=== PATIENT | female | born 2005 | race Two or more races ===

== ENCOUNTER 2024-10-23 09:05 | Emergency (ER) | payer OTHER ==
[~2024-10-23] VITALS: Ht 154.9 cm; Wt 98.3 kg
--- NOTE | 2024-10-23 10:24 | ED.PDOC ---
Eye-HPI HPI Comments This is a 19 year old female presents to the ED with chief complaint of sore throat. Patient reports that she has been experiencing a sore throat with associated nasal congestion for the past 3 days and eye redness since yesterday. Patient denies any N/V, SOB, fever, chills, chest pain, dizziness, headache, or ear pain Chief Complaint: Flu like Time Seen by MD: 10:22 Reviewed Notes: Nurses Notes, Medications, Allergies Allergies: Coded Allergies: NO KNOWN ALLERGIES (Unverified , 10/23/24) Information Source: Patient Mode of Arrival: Ambulatory Timing: Days Duration: Since onset Prehospital treatment: None Quality: Pain, Red Eye Location: Bilateral Mouth Location: Pharynx Associated signs and symptoms: Sore Throat Past Medical History PAST MEDICAL HISTORY: Asthma Surgical History: Denies all surgeries METEOROLOGICAL OBSERVER History: No Pertinent METEOROLOGICAL OBSERVER History Family History Family History: Reviewed,noncontributory to illness Social History Smoker: Non-Smoker Alcohol: Denies ETOH Use Drugs: Denies Drug Use Lives In: Home Constitutional: denies: chills, diaphoresis, fatigue, fever, malaise, sweats, weakness, others EENTM: reports: eye redness, nose congestion, throat pain; denies: blurred vision, double vision, ear bleeding, ear discharge, ear drainage, ear pain, ear ringing, eye pain, hearing loss, mouth pain, mouth swelling, nasal discharge, nose bleeding, nose pain, photophobia, tearing, throat swelling, voice changes, others Respiratory: denies: cough, hemoptysis, orthopnea, SOB at rest, shortness of breath, SOB with excertion, stridor, wheezing, others Cardiovascular: denies: chest pain, dizzy spells, diaphoresis, Dyspnea on exertion, edema, irregular heart beat, left arm pain, lightheadedness, palpitations, PND, syncope, others Gastrointestinal: denies: abdomen distended, abdominal pain, blood streaked bowels, constipated, diarrhea, dysphagia, difficulty swallowing, hematemesis, melena, nausea, poor appetite, poor fluid intake, rectal bleeding, rectal pain, vomiting, others Genitourinary: denies: abnormal vagina bleeding, burning, dyspareunia, dysuria, flank pain, frequency, hematuria, incontinence, pain, , vagina discharge, urgency, others Neurological: denies: dizziness, fainting, headache, left sided numbness, left sided weakness, numbness, paresthesia, pre-existing deficit, right sided numbness, right sided weakness, seizure, speech problems, tingling, tremors, weakness, others Musculoskeletal: denies: back pain, gout, joint pain, joint swelling, muscle pain, muscle stiffness, neck pain, others Integumetry: denies: bruises, change in color, change in hair/nails, dryness, laceration, lesions, lumps, rash, wounds, others Allergic/Immunocompromised: denies: Difficulty Healing, Frequent Infections, H michael, Itching, others Hematologic/Lymphatic: denies: anemia, blood clots, easy bleeding, easy bruising, swollen glands, others Endocrine: denies: excessive hunger, excessive sweating, excessive thirst, excessive urination, flushing, intolerance to cold, intolerance to heat, unexplained weight gain, unexplained weight loss, others Psychiatric: denies: anxiety, bipolar disorder, depression, hopeless, panic disorder, schizophrenia, sleepless, suicidal, others All Other Systems: Reviewed and Negative Physical Exam General Appearance: No Apparent Distress, Normal HEENT: Normal ENT Inspection, PERRL/EOMI, Other (Bilateral TMS retracted. Post nasal drip.) Neck: Full Range of Motion, Non-Tender, Normal, Normal Inspection Respiratory: Chest Non-Tender, Lungs Clear, No Accessory Muscle Use, No Respiratory Distress, Normal Breath Sounds Cardiovascular: No Edema, No JVD, No Murmur, No Gallop, Normal Peripheral Pulses, Regular Rate/Rhythm Breast Exam: Deferred Gastrointestinal: No Organomegaly, Non Tender, No Pulsatile Mass, Normal Bowel Sounds, Soft Genitalia: Deferred Pelvic: Deferred Rectal: Deferred Extremities: No calf tenderness, Normal capillary refill, Normal inspection, Normal range of motion, Non-tender, No pedal edema Musculoskeletal : Apperance: Normal Neurologic: Alert, earthmoving labourer II-XII nml as Tested, No Motor Deficits, Normal Affect, Normal Mood, No Sensory Deficits Cerebellar Function: Normal Reflexes: Normal Skin: Dry, Normal Color, Warm Lymphatic: No Adenopathy Was a procedure done? Was a procedure done?: No EENT DIFF Eye: Conjunctivitis, Allergic, Bacterial, Chlamydial, Viral Ear: Otitis Externa, Otitis Media, Pharyngitis, Sinusitis Sore Throat: Epiglottitis, Hand Foot Mouth Disease, Herpangina, Mononeucleosis, Kamar's Angina, Peritonsillar Cellulitis, Pharyngitis, Streptococcal, Viral Pharyngitis X-Ray, Labs, Meds, VS Vital Signs Date Time Temp Pulse Resp B/P (MAP) Pulse Ox O2 Delivery O2 Flow Rate FiO2 10/23/24 09:29 97.6 84 20 121/90 (100) 97 97.6 Time of 1ST Reevaluation: 10:25 Reevaluation 1ST: Unchanged Patient Education/Counseling: Diagnosis, Treatment Family Education/Counseling: No Family Present Additional Information Previous visits reviewed: None The following tests were ordered, and results were reviewed by me: None Additional Information was gathered from interviewing the following independent historians: None I reviewed and agreed with the following test results read by other providers: None I discussed treatment and results with medical personnel and: patient Comprehensive systems review obtained and negative except for what is stated in the HPI. SEPSIS Sepsis Screen Date sepsis recognized/suspect: Oct 23, 2024 Time Sepsis recognized/suspect: 929 Recent Procedure: No On Antibiotic Therapy: No Respiratory Rate >20: No Heart Rate >90: No Temp<36 C (96.8 F) or >38.3 C: No SBP <90 or MAP <65 mmHG: No New Acute Mental Status Change: No Is the patient on CPAP, BIPAP,: No Vital Signs Date Time Temp Pulse Resp B/P (MAP) Pulse Ox O2 Delivery O2 Flow Rate FiO2 10/23/24 09:29 97.6 84 20 121/90 (100) 97 97.6 Departure 1 Departure Time of Disposition: 10:26 Impression: Primary Impression: Eustachian tube disorder Qualified Codes: H69.93 - Unspecified eustachian tube disorder, bilateral Additional Impression: URI (upper respiratory infection) Qualified Codes: J06.9 - Acute upper respiratory infection, unspecified Disposition: HOME / SELF CARE / HOMELESS Condition: Good e-Prescriptions Fluticasone Propionate (Nasal) (Flonase Allergy Relief Ch) 50 Mcg/Act Spr 50 MCG NA BID, #1 SPRAY Prov: HAMIDA QURESHI MD 10/23/24 Loratadine & Pseudoephedrine (Claritin-D 24 Hour 10-240 mg) 1 Tab Tab 1 TAB PO DAILY@BREAKFAST PRN for 5 Days, #5 TAB Prov: HAMIDA QURESHI MD 10/23/24 Discharged With: Self Critical Care Note Critical Care Time?: No Stability Stability form required: No Heart Score Heart Score: Heart Score Response (Comments) Value History N/A 0 EKG N/A 0 Age N/A 0 Risk Factors N/A 0 Troponin N/A 0 Total 0 I personally scribed for HAMIDA QURESHI MD ([email or web address]) on 10/23/24 at 10:24. Electronically submitted by Josh Cunningham ([email or web address]). HAMIDA QURESHI MD Oct 23, 2024 10:24
[2024-10-23] MEDS ORDERED: LORA-1130 PO (10:28)
[2024-10-23] MEDS ORDERED: FLUT1SPR9 (10:28)
[2024-10-23 11:56] VITALS: BP 118/64; PULSE 82; RESP 18; TEMP 97.4; O2SAT 98
== END 2024-10-23 12:00 | disposition home or self-care (01) ==
LOC: ER 09:14
DX: H69.93 Unspecified Eustachian tube disorder, bilateral (principal); J06.9 Acute upper respiratory infection, unspecified; J45.909 Unspecified asthma, uncomplicated

== ENCOUNTER 2025-03-21 21:29 | Emergency (ER) | payer OTHER ==
[~2025-03-21] VITALS: Ht 167.6 cm; Wt 91.0 kg
[~2025-03-21 21:29] MED LIST: FLUT1SPR9; LORA-1130 PO
[2025-03-21 21:40] VITALS: BP 148/84; PULSE 98; TEMP 98
--- NOTE | 2025-03-21 22:01 | ED.PDOC ---
History of Present Illness HPI Comments 19-year-old female, with a history of asthma, is brought in by ambulance from private residence for chief complaint of asthma exacerbation after running out of her inhaler, today. Patient received 2 albuterol 1 Atrovent breathing treatments EN route, with notable improvement. At time of assessment, patient has a SpO2 of 97-100% on room air and reports on only having a cough and runny nose, currently. She comments, usually, using 4-5x doses of inhaler a day. REVIEW OF SYSTEMS: General: No fever, no chills, or fatigue HEENT: No sore throat, no earache, no congestion, no neck pain. Cardiac: No chest pain. No palpitations. Lungs: Shortness of breath, no cough. GI: No nausea, no vomiting, no diarrhea, no constipation, no abdominal pain : No dysuria, frequency, or urgency. No hematuria. Musculoskeletal: No joint pain , no joint swelling, no extremity edema. Skin: No rash, no itching. Neuro: No headache, no dizziness, no weakness (And as sated in HPI) PHYSICAL EXAM: General: Awake, alert and oriented. No acute distress. Skin: Skin in warm, dry and intact. Appropriate color for ethnicity. HEENT: The head is normocephalic and atraumatic. Conjunctivae are clear without exudates or hemorrhage. Sclera is non-icteric. Eyelids are normal in appearance without swelling or lesions. Oral mucosa is pink and moist Neck: The neck is supple with normal range of motion. No JVD. Cardiac: Heart rate and rhythm are normal. No murmurs, gallops, or rubs are auscultated. Respiratory: No signs of respiratory distress. Bilateral wheezes. Abdominal: Abdomen is soft, non-tender without distention, guarding or rigidity. Bowel sounds are present and normoactive in all four quadrants. Extremities: Upper and lower extremities are atraumatic in appearance without deformity or edema. Neurological: The patient is awake, alert and oriented to person, place, and time with normal speech. Speech is clear. There is no facial asymmetry. Psychiatric: Appropriate mood and affect. Good judgement and insight. Chief Complaint: Asthma Time Seen by MD: 21:50 Reviewed Notes: Nurses Notes, Plant Taxonomy Teacher Notes, Medications, Allergies Allergies: Coded Allergies: NO KNOWN ALLERGIES (Unverified , 10/23/24) Home Meds Active Scripts Respiratory Therapy Supplies (Full Kit Nebulizer Set) Set Mis, UNIT XX ONCE, #1 Prov:JESSICA DOCKERY MD 03/22/25 Albuterol Sulfate (Albuterol Sulfate) 0.083 % Neb, 1 VIAL NEB Q4HPRN PRN for 5 Days, #5 VIAL Prov:JESSICA DOCKERY MD 03/22/25 Azithromycin (ZITHROMAX TABLET) 250 Mg Tb, 250 MG PO DAILY for 4 Days, #4 TAB Prov:JESSICA DOCKERY MD 03/22/25 Prednisone (Prednisone) 20 Mg Tab, 20 MG PO DAILY for 4 Days, #4 MG Prov:JESSICA DOCKERY MD 03/22/25 Fluticasone Propionate (Nasal) (Flonase Allergy Relief Ch) 50 Mcg/Act Spr, 50 MCG NA BID, #1 SPRAY Prov:HAMIDA QURESHI MD 10/23/24 Loratadine & Pseudoephedrine (Claritin-D 24 Hour 10-240 mg) 1 Tab Tab, 1 TAB PO DAILY@BREAKFAST PRN for 5 Days, #5 TAB Prov:HAMIDA QURESHI MD 10/23/24 Information Source: Patient, Emergency Med Personnel Mode of Arrival: EMS Severity: Moderate Timing: Hours Duration: Since onset Prehospital treatment: 12 Lead EKG, Breathing Tx, Senior Firmware Engineer Past Medical History PAST MEDICAL HISTORY: Asthma Surgical History: Denies all surgeries ROLL CARRIER History: No Pertinent ROLL CARRIER History Family History Family History: Reviewed,noncontributory to illness Social History Smoker: Non-Smoker Alcohol: Denies ETOH Use Drugs: Denies Drug Use Lives In: Home Was a procedure done? Was a procedure done?: No Differential Dx Considerations may include: Differential diagnoses considered includebut arenot limited to acute Bronchitis, Asthma, COPD, Pneumothorax, PE, CHF, Pulmonary HTN, Anemia, CO Poisoning, Methemoglobinemia, Hyperventilation, Metabolic Acidosis, Pulmonary Edema, Pneumonia, ACS, Pericardial Tamponade, Anxiety, other X-Ray, Labs, Meds, VS Vital Signs Date Time Temp Pulse Resp B/P (MAP) Pulse Ox O2 Delivery O2 Flow Rate FiO2 03/22/25 00:03 21 100 Room Air* 0 03/21/25 22:22 16 100 Room Air* 0 21 03/21/25 21:40 98.0 98 18 148/84 100 98.0 Lab Test 03/22/25 01:15 Range/Units Influenza Type A Antigen Negative Negative Influenza Type B Antigen Negative Negative SARS-CoV-2 Antigen (Rapid) Negative NEGATIVE Current Medications Medications (Trade) Dose Ordered Sig/Tara Route Start Time Stop Time Status Last Admin Albuterol (Ventolin Medneb) 5 mg ONCE ONCE NEB 03/22/25 00:00 03/22/25 00:03 DC 03/22/25 00:03 [place] [id number] Ph: [phone] DIAGNOSTIC IMAGING Diagnostic Imaging Report : [id number] Signed PATIENT: BENEDICT DINH ACCT: [id number] UNIT: [id number] : 2005 LOC: ER ROOM / BED: / AGE / SEX: 19 / F ADM STATUS: REG ER SERVICE 53 ORDERING PHYSICIAN: JESSICA DOCKERY MD PROCEDURE(s): CXR1 - CHEST XRAY 1 VIEW REASON: Shortness of breath, cough, asthma ORDER NUMBER(s): [id number], ACCESSION NUMBER(s): [id number] CHEST RADIOGRAPH Indication: Shortness of breath, cough, asthma Technique: Single frontal view of the chest was obtained. Comparison: None Findings: Mild hazy opacities in the medial right lower lung. No significant pleural effusion. No pneumothorax. Nonenlarged cardiomediastinal silhouette. IMPRESSION: Possible early right lower lung pneumonia. Recommend short-term follow-up radiog raph after symptom improves to ensure resolution of the opacities and exclude underlying mass. ATED BY: DAVE MAR MD DICTATED DATE/TIME: 03/21/252228 SIGNED BY: DAVE MAR MD SIGNED DATE/TIME: 03/21/252228 CC: Time of 1ST Reevaluation: 02:00 Reevaluation 1ST: Improved Patient Education/Counseling: Need For Follow Up Family Education/Counseling: Need For Follow Up SEPSIS Sepsis Screen Date sepsis recognized/suspect: Mar 21, 2025 Time Sepsis recognized/suspect: 2139 Recent Procedure: No On Antibiotic Therapy: No Respiratory Rate >20: No Heart Rate >90: Yes Temp<36 C (96.8 F) or >38.3 C: No SBP <90 or MAP <65 mmHG: No New Acute Mental Status Change: No Is the patient on CPAP, BIPAP,: No Physician Orders Chest Xray 1 View (03/21/25 21:54) Vital Signs Date Time Temp Pulse Resp B/P (MAP) Pulse Ox O2 Delivery O2 Flow Rate FiO2 03/22/25 00:03 21 100 Room Air* 0 21 03/21/25 22:22 16 100 Room Air* 0 21 03/21/25 21:40 98.0 98 18 148/84 100 98.0 Departure 1 Departure Time of Disposition: 02:11 Impression: Primary Impression: Asthma exacerbation Disposition: 02 SHORT TERM HOSPITAL Condition: Stable Additional Instructions: ED DISCHARGE INSTRUCTIONS Instructions: Please read all instructions provided in this packet carefully. Although you have been discharged from the Emergency Department, this does not mean that you have a "clean bill of health". No definitive diagnosis for your symptoms has been made today. It is possible that you are in the process of developing a serious illness. This is why you must return to the ED without fail if any new or worsening symptoms (especially if your symptoms include chest pain, trouble breathing, abdominal pain, fever, headache, confusion, trouble seeing, or trouble walking) It is also very important that you see a primary care provider (PCP) within the next 3-5 days to follow up. If you are unable to get an appointment, return to the ED for re-evaluation. SHORTNESS OF BREATH EDUCATION Shortness of breath has many causes. Sometimes conditions such as anxiety can l ead to shortness of breath. Some people get mild shortness of breath when they exercise. Trouble breathing also can be a symptom of a serious problem, such as asthma, lung disease, emphysema, heart problems, and pneumonia. If your shortness of breath continues, you may need tests and treatment. Watch for any changes in your breathing and other symptoms. Follow-up care is a carson part of your treatment and safety. Be sure to make and go to all appointments, and call your doctor if you are having problems. It's also a good idea to know your test results and keep a list of the medicines you take. How can you care for yourself at home? Do not smoke or allow others to smoke around you. If you need help quitting, talk to your doctor about stop-smoking programs and medicines. These can increase your chances of quitting for good. Get plenty of rest and sleep. Take your medicines exactly as prescribed. Call your doctor if you think you are having a problem with your medicine. Find healthy ways to deal with stress. Exercise daily. Get plenty of sleep. Eat regularly and well. When should you call for help? Call 911 anytime you think you may need emergency care. For example, call if: You have severe shortness of breath. You have symptoms of a heart attack. These may include: Chest pain or pressure, or a strange feeling in the chest. Sweating. Shortness of breath. Nausea or vomiting. Pain, pressure, or a strange feeling in the back, neck, jaw, or upper belly or in one or both shoulders or arms. Lightheadedness or sudden weakness. A fast or irregular heartbeat. After you call 911, the an/ssn 2 4 operator may tell you to chew 1 adult-strength or 2 to 4 low-dose aspirin. Wait for an ambulance. Do not try to drive yourself. Call your doctor now or seek immediate medical care if: Your shortness of breath gets worse or you start to wheeze. Wheezing is a high- pitched sound when you breathe. You wake up at night out of breath or have to prop your head up on several pillows to breathe. You are short of breath after only light activity or while at rest. Watch closely for changes in your health, and be sure to contact your doctor if: You do not get better over the next 1 to 2 days. Credits for Shortness of Breath: Care Instructions Current as of: December 03, 2023 Author: [employer] Staff Test results 03/22/25 01:15 Result Range/Units Influenza Type A Antigen Negative Negative Influenza Type B Antigen Negative Negative SARS-CoV-2 Antigen (Rapid) Negative NEGATIVE PROCEDURE(s): CXR1 - CHEST XRAY 1 VIEW REASON: Shortness of breath, cough, asthma ORDER NUMBER(s): [id number], ACCESSION NUMBER(s): [id number] CHEST RADIOGRAPH Indication: Shortness of breath, cough, asthma Technique: Single frontal view of the chest was obtained. Comparison: None Findings: Mild hazy opacities in the medial right lower lung. No significant pleural effusion. No pneumothorax. Nonenlarged cardiomediastinal silhouette. IMPRESSION: Possible early right lower lung pneumonia. Recommend short-term follow-up radiograph after symptom improves to ensure resolution of the opacities and exclude underlying mass. e-Prescriptions Respiratory Therapy Supplies (Full Kit Nebulizer Set) Set Mis UNIT XX ONCE, #1 Prov: JESSICA DOCKERY MD 03/22/25 Albuterol Sulfate (Albuterol Sulfate) 0.083 % Neb 1 VIAL NEB Q4HPRN PRN for 5 Days, #5 VIAL Prov: JESSICA DOCKERY MD 03/22/25 Azithromycin (ZITHROMAX TABLET) 250 Mg Tb 250 MG PO DAILY for 4 Days, #4 TAB Prov: JESSICA DOCKERY MD 03/22/25 Prednisone (Prednisone) 20 Mg Tab 20 MG PO DAILY for 4 Days, #4 MG Prov: JESSICA DOCKERY MD 03/22/25 Comments MDM: Patient improved with treatment in the emergency department. She is felt stable for discharge home. Patient well-appearing, nontoxic. Advised prompt follow-up with PCP, return to the ED with any new, worsening or concerning symptoms. Extensive evaluation was performed in attempt to identify or rule out: (See differential diagnosis section) The following tests were ordered, and results were reviewed by me and discussed with patient: (See diagnostic results section) The following test were independently interpreted by me: Rapid influenza a and B test, COVID-19 antigen Ca test I reviewed and agreed with the following test results read by other providers: Chest x-ray I reviewed the following notes from the pt's past medical encounters: N/A Additional information was gathered from interviewing the following independent historians: EMS personnel Decision regarding hospitalization or escalation of hospital level of care: Risks and benefits of admission for further treatment of patient's condition was considered however due to patient's stable condition patient will be discharged to follow up closely or return to care for worsening of condition or inability to follow up. Critical Care Note Critical Care Time?: No Stability Stability form required: No Heart Score Heart Score: Heart Score Response (Comments) Value History N/A 0 EKG N/A 0 Age N/A 0 Risk Factors N/A 0 Troponin N/A 0 Total 0 I personally scribed for JESSICA DOCKERY MD ([email or web address]) on 03/21/25 at 22:01. Electronically submitted by Josh Cunningham ([email or web address]). I personally scribed for JESSICA DOCKERY MD ([email or web address]) on 03/21/25 at 23:00. Electronically submitted by Josh Cunningham ([email or web address]). JESSICA DOCKERY MD Mar 21, 2025 22:01
[2025-03-21] MEDS: ALBUTEROL SULF 2.5 MG/0.5ML(0.5%) NEB SOLN NEB ONE (22:19)
[2025-03-21] MEDS: IPRATROPIUM BROM 0.5 MG/2.5ML INH SOL NEB ONE (22:19)
--- NOTE | 2025-03-21 22:32 | DVH ---
CHEST RADIOGRAPH Indication: Shortness of breath, cough, asthma Technique: Single frontal view of the chest was obtained. Comparison: None Findings: Mild hazy opacities in the medial right lower lung. No significant pleural effusion. No pneumothorax. Nonenlarged cardiomediastinal silhouette. IMPRESSION: Possible early right lower lung pneumonia. Recommend short-term follow-up radiograph after symptom improves to ensure resolution of the opacities and exclude underlying mass.
[2025-03-21] MEDS: predniSONE 20 MG TAB PO ONE (23:20)
[2025-03-21] MEDS: AZITHROMYCIN 250 MG TAB PO ONE (23:23)
[2025-03-22] MEDS: ALBUTEROL SULF 2.5 MG/0.5ML(0.5%) NEB SOLN ONE (00:02)
[2025-03-22 00:03] VITALS: RESP 21; O2SAT 100
[2025-03-22] MEDS: ALBUTEROL SULF 2.5 MG/0.5ML(0.5%) NEB SOLN NEB ONE ×2 (00:03)
[2025-03-22 01:52] LABS: COVID19 ANTIGEN SOFIA FIA NEGATIVE (NEGATIVE)
[2025-03-22] MEDS ORDERED: ALBU0.084 NEB (02:13)
[2025-03-22] MEDS ORDERED: RESPMIS2 XX (02:13)
[2025-03-22] MEDS ORDERED: AZIT-185 PO (02:13)
[2025-03-22] MEDS ORDERED: PRED20TA2 PO (02:13)
== END 2025-03-22 03:09 | disposition home or self-care (01) ==
LOC: EDBD 21:29 → ER 21:29 → EDSEX 21:29 → ER 03-22 03:09
DX: J45.901 Unspecified asthma with (acute) exacerbation (principal); Z79.899 Other long term (current) drug therapy; Z20.822 Contact with and (suspected) exposure to COVID-19
CPT/HCPCS: 36415; 71045; 87426; 87804; 94640; 99284; J7512